=== PATIENT | female | born 1980 | race Caucasian/White ===

== ENCOUNTER 2016-10-02 20:34 | Emergency (ER) | payer MEDICAID ==
[~2016-10-02] VITALS: Ht 172.7 cm; Wt 72.6 kg
[~2016-10-02 20:34] MED LIST: BACTRIM DS 8001 TAB PO; CEFZIL500 MG PO; DULOXETINE60 MG PO; KEFLEX 500MG.500 MG PO; LEXAPRO10 MG PO; PYRIDIUM200 M2 PO; QUETIAPINE FUM100 M2 PO; VICODIN 5/500 T1 TAB PO; VICODIN 7.5/501 EACH PO; XYZAL5 MG PO
[2016-10-02 21:10] LABS: URINE BILIRUBIN - DIPSTICK NEGATIVE (NEG); URINE BLOOD 3+ (NEG)
[2016-10-02 21:11] LABS: HEMOGLOBIN 12.3 g/dL (12.2-16.2); LYMPH # 3.2 K/mm3 (0.7-4.5); LYMPH % 39.4 % (10-50.0)
--- NOTE | 2016-10-02 22:14 | Emergency Room Report ---
History of Present Illness Time Seen by MD 2050 Presenting Problem in Triage Pt arrived:Walked Presenting Problem:PAIN IN LEFT BACK, FLANK AREA. DENIES ANY N/V. STARTED AT 1805 TONIGHT. PT STATES SHE WAS TXD FOR UTI ON OF THIS MONTH, TOOK BACTRIM AND PYRIDIUM. Onset of symptoms date/time:10/02/16 or onset unknown for: Treatment Prior to Arrival: [facility] [employer] Provided by: Sepsis Risk Assessment: Temp: 98.0 B/P: 120/74 MAP: 89 Pulse: 73 Resp: 20 Recent fever? N Clinical Suspician of Infection? N Mental Status: 1 - Regular (Normal Baseline) Sepsis Risk:Low Sepsis Risk Have you (or family members/close friends) recently traveled outside the [place]? N If Yes, where/when: Have you had exposure to infectious disease within the past month? N TB? Other? Specify: Source patient, RN notes reviewed, RN/MD Exam Limitations no limitations Comment This is a 35-year-old female patient with history of hepatitis C, currently in drug court, presenting with LEFT flank pain radiating to the LEFT lower quadrant abdomen, for the past 4 hours. Upon arrival to the emergency room patient's symptoms appeared to be improving. Patient has any nausea, vomiting, diarrhea, previous symptoms in the past. ALLERGIES Coded Allergies: No Known Allergies (10/08/15) Home Medications Active Scripts Phenazopyridine HCl (Pyridium) 200 MG PO TIDP PRN urinary symptoms #6 TAB Prov: 09/21/16 Reported Medications Quetiapine Fumarate 100 MG PO QHS #30 History Medical History General CAD? No Angina: No CT: No Hypertension? No Hyperlipidemia? No CHF? No DVT? No PE? No COPD? No Asthma? No Anemia? No GERD? No Gastric ulcers? No GI Bleed? No Hernia? No Thyroid Problems? No Hypothyroidism? No CVA? No Seizures? No Diabetes? No Renal Insuffiency? No End Stage Renal Disease? No UTI? No Stones? No BPH? No GB Disease: No Nephritic Syndrome? No Asplenia? No Hepatitis? No Sickle Cell Disease? No Arthritis? No Migraines? Yes Cataracts? No Glaucoma? No MRSA? No HIV? No TB? No Anxiety? No Depression? No Cancer? No More? 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 Hx LMP 1-6 Days Ago Family History Family Hx Diabetes No CAD No Hypertension Yes Hyperlipidemia Yes Cancer Yes TB No Social History Smoking Hx Smoker: Current Every Day Smoker Tobacco: Yes Type Cigarettes Packs/day < 1 Pack Alcohol Alcohol: No Review of Systems All Other Systems Reviewed and Negative Gastrointestinal abdominal pain (LLQ) Musculoskeletal back pain (LEFYT flank) Physical Exam Vital Signs Vital Signs Date Time Temp Pulse Resp B/P Pulse O2 O2 Flow FiO2 Ox Delivery Rate 10/02 2259 85 20 126/76 99 10/02 2237 98.0 73 20 101/57 98 10/02 2105 73 20 120/74 98 10/02 2042 98.0 64 22 122/73 98 General Appearance normal appearance, WD/WN, no apparent distress Respiratory Status Yes: trachea midline, chest symmetrical, non tender chest. No: respiratory distress. Lung Sounds bilateral: normal breath sounds, lungs clear. 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 No Comment Upon reevaluation patient appears medically stable, in no acute distress. Advised patient to follow-up with PCP if any further medical concerns. Results/Orders Laboratory Tests 10/02/16 2100: Sodium 140, Potassium 3.8, Chloride 103, Carbon Dioxide 28, BUN 22 H, Creatinine 1.0, Estimated Creat Clear 88, Estimated GFR (MDRD) 62, Glucose 94, Calcium 9.8, Total Bilirubin 0.3, AST 52 H, ALT 81 H, Alkaline Phosphatase 68, Total Protein 8.3 H, Albumin 4.5, Globulin 3.8 H, Albumin/Globulin Ratio 1.2, Amylase 48, Lipase 143, WBC 8.2, RBC 4.07 L, Hgb 12.3, Hct 36.5 L, MCV 89.5, RDW 12.7, Plt Count 330, MPV 7.5, Gran % 48.1, Gran # 4.0, Lymphocytes % 39.4, Monocytes % 5.0, Eosinophils % 6.8, Basophils % 0.7, Lymphocytes # 3.2, Monocytes # 0.4, Eosinophils # 0.6 H, Basophils # 0.1, PUBS MCHC 33.7, MCH 30.2 , Urine Color YELLOW, Urine Appearance CLEAR, Urine pH 6.0, Ur Specific [place] 1.025, Urine Protein NEGATIVE, Urine Ketones NEGATIVE, Urine Blood 3+ H, Urine Nitrate NEGATIVE, Urine Bilirubin NEGATIVE, Urine Urobilinogen 0.2, Ur Leukocyte Esterase NEGATIVE, Urine RBC 5-10, Urine WBC 3-5, Ur Squamous Epith Cells 10-20, Urine Bacteria TRACE, Hyaline Casts 3-5, Urine Glucose NEGATIVE Current Medication Orders Sig/Burak Start time Last Medication Dose Route Stop Time Status Admin Sodium Chloride 10 ML PRN PRN 10/02 2099 DCD IV 10/04 2051 Orders Procedure Date/time Status DIET-NOTHING BY MOUTH 10/[address] ABD/PELVIS REQ 10/03 2123 Complete URINE 10/02 2104 Complete IV SALINE LOCK 10/03 2051 Active URINALYSIS/COMPLETE 10/03 2051 Complete LIPASE 10/03 2051 Complete CBC WITH AUTO DIFF 10/03 2051 Complete CHEM 12 PROFILE 10/03 2051 Complete AMYLASE 10/03 2051 Complete XRAY/CT/US XRAY/CT/US CT abdomen, pelvis CT interpretation by discussed w/radiologist CT Results abnormal Comment see V Rad report Departure Departure Time of Disposition 2247 Disposition DC Home or Self Care(routine) Clinical Impression Primary Impression: Kidney stone Secondary Impressions: Hematuria Qualifiers: Hematuria type: unspecified type Qualified Code: R31.9 - Hematuria, unspecified Condition STABLE Referrals Yahaira GILLETTE,[place] (Family): 2 Days-Call Office if not better Patient Instructions DI for Hematuria, DI for Kidney Stones Additional Instructions Please drink plenty of fluids, follow up with PCP if not better in 2-3 days. Discharge Counseling Counseled pt/family regarding diagnosis, test results, medications/RX, home care, follow up needs Comment Please drink plenty of fluids, follow up with PCP if not better in 2-3 days. Prescriptions Current Visit Scripts Phenazopyridine HCl (Pyridium) 200 MG PO TID PRN dysuria #15 TAB ED Critical Care Critical Care No at 0624
[2016-10-02] MEDS ORDERED: PYRIDIUM200 M2 PO (22:50)
[2016-10-02 22:59] VITALS: BP 126/76
--- NOTE | 2016-10-03 05:52 | RADIOLOGY REPORT PS360 ---
CT ABD PELVIS W/O CONTRAST CLINICAL INDICATION: Left flank pain, left groin pain FLANK PAIN ORDERING PHYSICIAN: Yaakov Orozco MD PATIENT AGE: 35 years COMPARISON: None TECHNIQUE: Axial images obtained with sagittal and coronal reformats. PROCEDURE: Oral Contrast: None IV Contrast: None . FINDINGS: Lung bases are clear. The liver, spleen, adrenal glands, and pancreas have an unremarkable unenhanced appearance. Gallbladder wall appears slightly thickened nonspecific and may be better evaluated with ultrasound. There is a prominent gastric diverticulum near the fundus of the stomach. 2 mm stone is present in the lower pole the right kidney. No hydronephrosis. No obvious ureteral calculus. There is a 3 mm calcification at the base of the urinary bladder slightly toward the right and may be related to recently passed stone. No evidence of appendicitis or diverticulitis. No evidence of intestinal obstruction or free air. No acute bony anomalies. IMPRESSION: 1. 3 mm calculus within the base of the urinary bladder slightly toward the right and may be related to recently passed down. 2. 2 mm stone in the right kidney. 3. Gastric diverticulum. 4. Mild thickening of the gallbladder wall which may be better evaluated with ultrasound
== END 2016-10-02 22:59 | disposition home or self-care (01) ==
LOC: ER 20:34
PROVIDERS: Emergency Medicine
DX: N20.0 Calculus of kidney (principal); R31.9 Hematuria, unspecified; Z72.0 Tobacco use